=== PATIENT | male | born 1980 | race Hispanic/Latino ===

== ENCOUNTER 2019-01-22 19:30 | Outpatient (CLI) | payer OTHER | END 2019-01-22 19:31 | disposition home or self-care (01) | LOC: SLEEPLAB 19:30 | PROVIDERS: ATTEND Family Medicine | DX: G47.33 Obstructive sleep apnea (adult) (pediatric) (principal); R53.83 Other fatigue; E66.9 Obesity, unspecified; I10 Essential (primary) hypertension; G47.00 Insomnia, unspecified; F41.9 Anxiety disorder, unspecified; I63.9 Cerebral infarction, unspecified | CPT/HCPCS: 95811 ==

== ENCOUNTER 2022-05-03 12:00 | Emergency (ER) | payer OTHER, SELFPAY ==
[2022-05-03] MEDS ORDERED: Ketorolac Tromethamine 30 MG/ML VIAL ONE (12:39)
[2022-05-03] MEDS ORDERED: Diazepam 5 MG TAB ONE (13:33)
== END 2022-05-03 13:43 | disposition home or self-care (01) ==
LOC: ERS 12:00
DX: M54.50 Low back pain, unspecified (principal)
CPT/HCPCS: 96374; J1885